=== PATIENT | male | born 1995 | race Caucasian/White ===

== ENCOUNTER 2017-11-08 18:05 | Emergency (ER) | payer BC ==
[2017-11-08 18:42] VITALS: RESP 16; TEMP 97.7; O2SAT 96
--- NOTE | 2017-11-08 19:17 | EDPHY ---
H & P Stated Complaint: Throbbing h/a,vom x1 this am;malaise;missed exam this morning Time Seen by Provider: 11/08/17 19:16 - Personal History Current Tetanus Diphtheria and Acellular Pertussis (TDAP): Yes - Social History Smoking Status: Never smoked Constitutional: Initial Vital Signs Temperature (C) 36.5 C 11/08/17 18:35 Heart Rate 88 11/08/17 18:35 Respiratory Rate 16 11/08/17 18:35 Blood Pressure 143/89 H 11/08/17 18:35 O2 Sat (%) 96 11/08/17 18:35 O2 Delivery Mode Room Air Allergies/Adverse Reactions: No Known Allergies Allergy (Unverified 11/08/17 18:34) Home Medications: Medication Instructions Recorded Ibuprofen [Motrin] 800 mg PO Q8 #20 tab 11/08/17 Ondansetron Odt [Zofran Odt 4 mg 4 mg PO Q4 PRN #10 tab 11/08/17 (RX)] Medical Decision Making ED Course/Re-evaluation: CHIEF COMPLAINT: Headache HISTORY OF PRESENT ILLNESS: The patient is a 21 y/o male complaining of a pounding headache since waking this morning around 7:00, about 12 hours ago. He complains of associated photophobia. He was unable to make it to a final this morning and was up late studying for tests last night. He has no personal history of migraines, but his mother gets them frequently. He denies weakness, paresthesias, fever, or any other symptoms. REVIEW OF SYSTEMS: A 10 point review of systems was performed and is negative with the exception of the elements mentioned in the history of present illness. PHYSICAL EXAM: HR, BP, O2 Sat, RR. Temp noted General Appearance: Alert, well hydrated, appropriate, and non-toxic appearing. Head: Atraumatic without scalp tenderness or obvious injury Eyes: Pupils equal, round, reactive to light and accommodation, EOMI, no trauma , no injection. Ears: Clear bilaterally, no perforation, normal landmarks Nose: Atraumatic, no rhinorrhea, clear. Throat: There is no erythema or exudates, no lesions, normal tonsils, mucus membranes moist. Neck: Supple, nontender, no lymphadenopathy. Respiratory: No retractions, no distress, no wheezes, and no accessory muscle use. Lungs are clear to auscultation bilaterally. Cardiovascular: Regular rate and rhythm, no murmurs, rubs, or gallops. Good capillary refill all extremities. Gastrointestinal: Abdomen is soft, nontender, non-distended, no masses, no rebound, no guarding, no peritoneal signs. Musculoskeletal: Normal active ROM of all extremities, atraumatic. Neurological: Alert, appropriate, and interactive. The patient has non-focal cranial nerves, motor, sensory, and cerebellar exam. Skin: No rashes, good turgor, no nodules on palpation. Past medical history: Denies Past surgical history: Denies Family history: Noncontributory Social history: [employer] student. Lives in [place]. Single. DIFFERENTIAL DIAGNOSIS: The differential diagnosis for the patient's headache included but was not limited to subarachnoid hemorrhage, migraine headache, tension headache and infectious causes such as meningitis, pharyngitis and sinusitis. MEDICAL DECISION MAKING: This is a 21 y/o male who presents with a 1-day history of headache and photophobia. He has a completely normal neuro exam. No indication for imaging. He will receive a dose of Excedrin here and be discharged home with standard migraine care and follow up instructions. Return precautions discussed. He is comfortable with this plan. - Data Points Medications Given: Discontinued Medications Ondansetron HCl (Zofran Odt) 4 mg PO EDNOW ONE Stop: 11/08/17 20:07 Last Admin: 11/08/17 20:07 Dose: 4 mg Departure - Departure Disposition: Home, Routine, Self-Care Clinical Impression: Headache Qualifiers: Headache type: other headache syndrome Qualified Code(s): G44.89 - Other headache syndrome Condition: Good Instructions: Ondansetron (By mouth), Migraine Headache (ED), Acute Headache ( ED) Additional Instructions: 1. Take Excedrin as directed on the packaging as needed for headache. 2. Use Zofran as prescribed as needed for nausea. 3. Take 800mg ibuprofen every 6-8 hours as needed for pain over the next few days. 4. Follow up with neurologist for further evaluation of possible migraine headaches. 5. Return to the ED for worsening of condition. Referrals: Killian Mejia MD [Medical Doctor] - As per Instructions Stand Alone Forms: School Excuse Prescriptions: Ibuprofen [Motrin] 800 mg PO Q8 #20 tab Ondansetron Odt [Zofran Odt 4 mg (RX)] 4 mg PO Q4 PRN #10 tab PRN Reason: Nausea/Vomiting, Use 1st Report Scribed for: Hernan Onofre Report Scribed by: Ivy Back Date of Report: 11/08/17 Time of Report: 19:51
[2017-11-08] MEDS ORDERED: ACETAMINOPHEN/ASA/CAFFEINE 1 EACH TAB PO ONE (19:50)
[2017-11-08] MEDS ORDERED: ONDANSETRON 4MG PREPACK#2 BTL TAKEHOME ONE (19:51)
[2017-11-08] MEDS ORDERED: ONDANSETRON DISINTEGRATING 4 MG TAB ONE (20:05)
[2017-11-08] MEDS ORDERED: ONDANSETRON DISINTEGRATING 4 MG TAB PO ONE (20:06)
[2017-11-08 20:37] VITALS: BP 124/81; PULSE 72
== END 2017-11-08 20:37 | disposition home or self-care (01) ==
DX: G44.89 Other headache syndrome (principal)

== ENCOUNTER 2018-02-19 10:59 | Emergency (ER) | payer BC ==
--- NOTE | 2018-02-19 11:44 | EDPHY ---
H & P Time Seen by Provider: 02/19/18 11:16 HPI/ROS: CHIEF COMPLAINT: Sore throat, myalgias HISTORY OF PRESENT ILLNESS: 22-year-old male presents to the emergency department with ongoing sore throat and myalgias. The patient states that he started feeling sick 5 days ago. He went to [facility] and had a rapid strep screen which was negative. Influenza was also negative. Patient was told to return if his symptoms did not improve her he was feeling worse. The patient continues to have an ongoing sore throat. He denies dysphagia. He has had subjective fevers and chills. He states "I just want to know what's wrong with me". No cough. No back pain. No chest pain or difficulty breathing. He denies diarrhea. Denies vomiting. No known ill contacts. No recent travel. REVIEW OF SYSTEMS: Constitutional: Subjective fevers, chills Eyes: No double or blurry vision. ENT: sore throat. Respiratory: No cough, no shortness of breath. Cardiac: No chest pain. Gastrointestinal: No abdominal pain, vomiting or diarrhea. Genitourinary: No dysuria. Musculoskeletal: No neck or back pain. Skin: No rashes. Neurological: No headache. Past Medical/Surgical History: Tonsillectomy Social History: [employer] student Smoking Status: Never smoked Physical Exam: General Appearance: Alert, no distress. 37.0 Eyes: Pupils equal and round. Extraocular motions are all intact. ENT: Posterior pharyngeal injection noted. No exudate. No tonsils. No uvular shift. No muffled voice or trismus. Anterior cervical lymphadenopathy palpated. Respiratory: No wheezing, rhonchi, or rales, lungs are clear to auscultation. Cardiovascular: Regular rate and rhythm. Gastrointestinal: Abdomen is soft and nontender, no masses, no rebound or guarding, bowel sounds normal. Neurological: Alert and oriented x 3, cranial nerves II through XII grossly intact Skin: Warm and dry, no rashes. Musculoskeletal: Nontender to palpate along the cervical, thoracic or lumbar spine. Neck is supple. Extremities: Full range of motion and no peripheral edema. Psychiatric: Patient is oriented X 3, there is no agitation. Constitutional: Initial Vital Signs Temperature (C) 37.0 C 02/19/18 11:04 Heart Rate 95 02/19/18 11:04 Respiratory Rate 16 02/19/18 11:04 Blood Pressure 127/81 H 02/19/18 11:04 O2 Sat (%) 100 02/19/18 11:04 O2 Delivery Mode Room Air Allergies/Adverse Reactions: No Known Allergies Allergy (Verified 02/19/18 11:03) Home Medications: Medication Instructions Recorded NK [No Known Home Meds] 02/19/18 Medical Decision Making ED Course/Re-evaluation: Patient was concerned about possible mono. This was negative. Patient was reassured. He likely has viral illness. I do not think antibiotics are indicated. He will return if he has any other concerns. Differential Diagnosis: Including but not limited to strep pharyngitis, mononucleosis, viral pharyngitis , influenza - Data Points Laboratory Results: Laboratory Results 02/19/18 11:51 02/19/18 02/19/18 11:51 11:45 WBC 9.99 10^3/uL H 10^3/uL (3.80-9.50) RBC 5.48 10^6/uL 10^6/uL (4.40-6.38) Hgb 16.8 g/dL g/dL (13.7-17.5) Hct 48.1 % % (40.0-51.0) MCV 87.8 fL fL (81.5-99.8) MCH 30.7 pg pg (27.9-34.1) MCHC 34.9 g/dL g/dL (32.4-36.7) RDW 11.7 % % (11.5-15.2) Plt Count 251 10^3/uL 10^3/uL (150-400) MPV 9.8 fL fL (8.7-11.7) Neut % (Auto) 73.7 % % (39.3-74.2) Lymph % (Auto) 11.2 % L % (15.0-45.0) Bent % (Auto) 13.9 % H % (4.5-13.0) Eos % (Auto) 0.6 % % (0.6-7.6) Baso % (Auto) 0.4 % % (0.3-1.7) Nucleat RBC Rel Count 0.0 % % (0.0-0.2) Absolute Neuts (auto) 7.36 10^3/uL H 10^3/uL (1.70-6.50) Absolute Lymphs (auto) 1.12 10^3/uL 10^3/uL (1.00-3.00) Absolute Monos (auto) 1.39 10^3/uL H 10^3/uL (0.30-0.80) Absolute Eos (auto) 0.06 10^3/uL 10^3/uL (0.03-0.40) Absolute Basos (auto) 0.04 10^3/uL 10^3/uL (0.02-0.10) Absolute Nucleated RBC 0.00 10^3/uL 10^3/uL (0-0.01) Immature Gran % 0.2 % % (0.0-1.1) Immature Gran # 0.02 10^3/uL 10^3/uL (0.00-0.10) Monoscreen NEGATIVE (NEGATIVE) Departure - Departure Disposition: Home, Routine, Self-Care Clinical Impression: Viral upper respiratory infection Condition: Good Instructions: Upper Respiratory Infection (ED) Additional Instructions: Adult Pain & Fever Control: We recommend Acetaminophen (Tylenol) and Ibuprofen (Motrin,Advil) for pain and fever control. When fever is high or pain severe, both drugs can be used at the same time, but at different intervals. Please note the time differences. Your dose is: Acetaminophen 1000mg every 4 to 6 hours Ibuprofen 600mg every 8 hours with food Note: do not take Acetaminophen with Hydrocodone (Vicodin, Lortab) or Oycodone (Percocet). These medications also contain Acetaminophen. No more than 3000mg of Acetaminophen should be taken in 24 hours (for an adult). Your mononucleosis screen was negative. Referrals: Mikey Taylor MD [Medical Doctor] - 2-3 days, if not improved (Primary care provider senior sales compensation analyst)
[2018-02-19 11:57] LABS: PLATELET COUNT 251 10^3/uL (150-400)
[2018-02-19 12:33] VITALS: BP 125/74
== END 2018-02-19 12:31 | disposition home or self-care (01) ==
DX: J06.9 Acute upper respiratory infection, unspecified (principal)